=== PATIENT | male | born 2000 | race Caucasian/White ===

== ENCOUNTER 2023-08-19 20:35 | Emergency (ER) | payer MEDICAID ==
[~2023-08-19] VITALS: Ht 175.3 cm; Wt 82.7 kg
[2023-08-19] MEDS ORDERED: LIDOcaine 1% 30ml preserv. free vial IJ ONE (22:50)
[2023-08-19 23:25] VITALS: BP 140/78; PULSE 84; RESP 16; TEMP 97.9; O2SAT 100
== END 2023-08-19 23:28 | disposition home or self-care (01) ==
LOC: ER 20:38
DX: S61.212A Laceration without foreign body of right middle finger without damage to nail, initial encounter (principal); W45.8XXA Other foreign body or object entering through skin, initial encounter; Y93.89 Activity, other specified; Y92.89 Other specified places as the place of occurrence of the external cause; Y99.8 Other external cause status
CPT/HCPCS: 12001; 99282

== ENCOUNTER 2023-08-29 10:57 | Emergency (ER) | payer MEDICAID ==
[~2023-08-29] VITALS: Ht 175.3 cm; Wt 80.7 kg
[2023-08-29 11:16] VITALS: BP 141/81; PULSE 87; RESP 16; O2SAT 98
[2023-08-29 11:51] VITALS: TEMP 97.8
== END 2023-08-29 11:53 | disposition home or self-care (01) ==
LOC: ER 10:57
DX: S61.212D Laceration without foreign body of right middle finger without damage to nail, subsequent encounter (principal); X58.XXXD Exposure to other specified factors, subsequent encounter
CPT/HCPCS: 12001; 99281; 99282